=== PATIENT | female | born 1965 | race African-American/Black ===

== ENCOUNTER 2021-05-25 16:40 | Emergency (ER) | payer MEDICAID, OTHER ==
[~2021-05-25] VITALS: Ht 170.2 cm; Wt 73.0 kg
[2021-05-25 21:36] VITALS: BP 136/94
== END 2021-05-25 21:47 | disposition home or self-care (01) ==
LOC: ER 16:40
DX: M25.561 Pain in right knee (principal); R68.84 Jaw pain
CPT/HCPCS: 99281